=== PATIENT | female | born 1970 | race Caucasian/White ===

== ENCOUNTER 2016-08-11 21:18 | Observation (INO) | payer OTHER ==
[2016-08-11] MEDS ORDERED: NORMAL SALINE 1000 ML 1,000 ML IV PRN (22:21)
[2016-08-11] MEDS ORDERED: METOCLOPRAMIDE HCL INJ/PF 10 MG/2 ML SDV IV ONE (22:21)
--- NOTE | 2016-08-11 22:29 | ER Document Report ---
ED GI/ - General Chief Complaint: Dizziness Stated Complaint: DIZZY/NAUSEA/VOMITING Time Seen by Provider: 08/11/16 22:05 Mode of Arrival: Ambulatory Information source: Patient TRAVEL OUTSIDE OF THE [place] IN LAST 30 DAYS: No - HPI Patient complains to provider of: Other - nausea Onset: This evening Timing/Duration: Sudden Quality of pain: No pain Associated symptoms: Nausea Exacerbated by: Denies Relieved by: Denies Similar symptoms previously: No Recently seen / treated by doctor: No Notes: 08/12/16 03:13 It is a 46-year-old female who presents to the emergency room complaining of nausea and vomiting that started this evening, she states she has not had a bowel movement since last , therefore she drinks some prune juice this evening and then took benzonite which is an herbal supplement, stating she took a little over a teaspoon of this medication, shortly thereafter she developed vomiting and nausea, denies any abdominal pain, no fever, no history of similar symptoms, no dysuria or hematuria, reports that she does not take the benzonite on a regular basis, this was the first time she has taken it, her last bowel movement was normal and without blood, vomiting also without blood, she denies any history of GI bleeding, no sick contacts, she reports drinking approximately 4 bottles of water on a daily basis, denies alcohol intake, she quit smoking in March and started vaping patient does not currently take any medication, has a history of a in 2006, no other abdominal surgery - Related Data Allergies/Adverse Reactions: bacitracin [From Neosporin ([id number])] Allergy (Verified 08/12/16 02:10) neomycin [From Neosporin ([id number])] Allergy (Verified 08/12/16 02:10) polymyxin B [From Neosporin ([id number])] Allergy (Verified 08/12/16 02:10) Past Medical History - General Information source: Patient - Social History Smoking Status: Current Every Day Smoker - Vape Frequency of alcohol use: Occasional Family History: Reviewed & Not Pertinent Review of Systems - Review of Systems Constitutional: No symptoms reported EENT: No symptoms reported Cardiovascular: No symptoms reported Respiratory: No symptoms reported Gastrointestinal: See HPI Genitourinary: No symptoms reported Female Genitourinary: No symptoms reported Musculoskeletal: No symptoms reported Skin: No symptoms reported Hematologic/Lymphatic: No symptoms reported Neurological/Psychological: No symptoms reported -: Yes All other systems reviewed and negative Physical Exam - Vital signs Vitals: Resp Pulse Ox 16 100 08/11/16 21:55 08/11/16 21:55 Interpretation: Normal - General General appearance: Appears well, Alert - HEENT Head: Normocephalic, Atraumatic Eyes: Normal Pupils: PERRL - Respiratory Respiratory status: No respiratory distress Chest status: Nontender Breath sounds: Normal Chest palpation: Normal - Cardiovascular Rhythm: Regular Heart sounds: Normal auscultation Murmur: No - Abdominal Inspection: Normal Distension: No distension Bowel sounds: Normal Tenderness: Nontender Organomegaly: No organomegaly - Rectal Tenderness: No Stool: No: Bloody Hemorrhoids: None - Back Back: Normal, Nontender - Extremities General upper extremity: Normal inspection, Nontender, Normal color, Normal ROM , Normal temperature General lower extremity: Normal inspection, Nontender, Normal color, Normal ROM , Normal temperature, Normal weight bearing. No: Alexey's sign - Neurological Neuro grossly intact: Yes Cognition: Normal Orientation: AAOx4 Alisha Coma Scale Eye Opening: Spontaneous [place] Coma Scale Verbal: Oriented [place] Coma Scale Motor: Obeys Commands Alisha Coma Scale Total: 15 Speech: Normal Motor strength normal: LUE, RUE, LLE, RLE Sensory: Normal - Psychological Associated symptoms: Normal affect, Normal mood - Skin Skin Temperature: Warm Skin Moisture: Dry Skin Color: Normal Course - Re-evaluation Re-evalutation: 08/11/16 23:48 call to poison control, spoke with Vivienne, discussed patient's use of benzonite, which if used chronically can cause hypokalemia, or intestinal obstruction likely not the source of patient's hyponatremia Findings were discussed with patient at bedside as well as imaging, observation admission was recommended and patient is in agreement with this Was discussed with hospitalist who agrees to admit for further evaluation and treatment - Vital Signs Vital signs: Temp Pulse Resp BP Pulse Ox 98.4 F 18 112/77 96 08/11/16 22:19 08/12/16 01:30 08/12/16 01:30 08/12/16 01:30 - Laboratory Result Diagrams: 08/11/16 23:06 08/11/16 23:06 Laboratory results interpreted by me: 08/11/16 08/11/16 08/11/16 23:06 23:06 23:06 WBC 13.0 H Hgb 8.9 L Hct 28.6 L MCV 68 L MCH 21.2 L MCHC 31.3 L RDW 17.3 H Seg Neutrophils % 80.7 H Lymphocytes % 8.8 L Absolute Neutrophils 10.5 H Sodium 118.0 L* Potassium 3.5 L Chloride 84 L BUN 4 L Calcium 8.0 L AST 43 H Total Protein 6.0 L Urine Glucose (UA) 50 H Urine Ketones 20 H - Diagnostic Test Radiology reviewed: Image reviewed, Reports reviewed - Transfer of Care Care transferred to following provider: Dr. Varela Discharge - Discharge Clinical Impression: Hyponatremia Nausea and vomiting Qualifiers: Vomiting type: unspecified Vomiting Intractability: non-intractable Qualified Code(s): R11.2 - Nausea with vomiting, unspecified Pneumonia Qualifiers: Pneumonia type: due to unspecified organism Laterality: right Lung location: middle lobe of lung Qualified Code(s): J18.1 - Lobar pneumonia, unspecified organism Admitting Provider: Hospitalist Unit Admitted: Telemetry Referrals: DAX CARABALLO MD [Primary Care Provider] - Follow up as needed
[2016-08-11 23:21] LABS: ABSOLUTE BASOPHILS # (AUTO) 0.1 10^3/uL (0.0-0.2); ABSOLUTE EOSINOPHILS # (AUTO) 0.1 10^3/uL (0.0-0.6); ABSOLUTE LYMPHOCYTES (AUTO) 1.1 10^3/uL (0.5-4.7); ABSOLUTE MONOCYTES (AUTO) 1.2 10^3/uL (0.1-1.4); ABSOLUTE NEUT (AUTO) 10.5 10^3/uL (1.7-8.2); BASOPHILS % (AUTO) 0.4 % (0-2); EOSINOPHILS % (AUTO) 0.8 % (0-6); HEMATOCRIT 28.6 % (36.0-47.0); HEMOGLOBIN 8.9 g/dL (12.0-15.5); HGB HCT DIFFERENCE -1.9; LYMPHOCYTES % (AUTO) 8.8 % (13-45); MEAN CORPUSCULAR HEMOGLOBIN 21.2 pg (27.0-33.4); MEAN CORPUSCULAR HGB CONC 31.3 g/dL (32.0-36.0); MEAN CORPUSCULAR VOLUME 68 fl (80-97); MONOCYTES % (AUTO) 9.3 % (3-13); RED BLOOD COUNT 4.23 10^6/uL (3.72-5.28); RED CELL DISTRIBUTION WIDTH 17.3 % (11.5-14.0); SEGMENTED NEUTROPHILS % (AUTO) 80.7 % (42-78)
[2016-08-11 23:29] LABS: ALANINE AMINOTRANSFERASE 42 U/L (9-52); ALBUMIN 3.6 g/dL (3.5-5.0); ALKALINE PHOSPHATASE 49 U/L (38-126); ANION GAP 11 (5-19); ASPARTATE AMINO TRANSFERASE 43 U/L (14-36); BILIRUBIN,DIRECT 0.2 mg/dL (0.0-0.4); BILIRUBIN,TOTAL 0.6 mg/dL (0.2-1.3); BLOOD UREA NITROGEN 4 mg/dL (7-20); CARBON DIOXIDE 23 mmol/L (22-30); CHLORIDE 84 mmol/L (98-107); CREATININE RESULT 0.62 mg/dL (0.52-1.25); GLUCOSE 79 mg/dL (75-110); POTASSIUM 3.5 mmol/L (3.6-5.0)
[2016-08-11 23:35] LABS: ALCOHOL < 10 mg/dL (NONE DETECTED)
[2016-08-12 00:56] LABS: APPEARANCE,URINE CLEAR; BILIRUBIN,URINE NEGATIVE (NEGATIVE); GLUCOSE, URINE 50 mg/dL (NEGATIVE); KETONES,URINE 20 mg/dL (NEGATIVE); LEUKOCYTE ESTERASE,URINE NEGATIVE (NEGATIVE); NITRITE,URINE NEGATIVE (NEGATIVE); PROTEIN,URINE NEGATIVE (NEGATIVE); URINE SPECIFIC GRAVITY 1.003; UROBILINOGEN,URINE NEGATIVE mg/dL (<2.0)
[2016-08-12 02:40] LABS: URINE BARBITURATES SCREEN NEGATIVE; URINE METHADONE SCREEN NEGATIVE; URINE OPIATES LOW NEGATIVE; URINE PHENCYCLIDINE SCREEN NEGATIVE
--- NOTE | 2016-08-12 02:53 | RADIOLOGY REPORT (SQ) ---
EXAM DESCRIPTION: CT ABD/PELVIS WITH IV ORAL COMPLETED DATE/TIME: 08/12/2016 2:32 am REASON FOR STUDY: abdominal pain COMPARISON: None. TECHNIQUE: CT scan of the abdomen and pelvis performed using helical scanning technique with dynamic intravenous contrast injection. No oral contrast. Images reviewed with lung, soft tissue, and bone windows. Reconstructed coronal and sagittal MPR images reviewed. Delayed images for evaluation of the urinary system also acquired. All images stored on PACS. All CT scanners at this facility use dose modulation, iterative reconstruction, and/or weight based d osing when appropriate to reduce radiation dose to as low as reasonably achievable (ALARA). [facility]: Dose Right [facility]: CareDose [facility]: Dose Right [facility]: Teradose 4D [facility]: Mindflash CONTRAST TYPE AND DOSE: 100mL Isovue 370- low osmolar. RENAL FUNCTION: None required. The patient is less than 50 years old. RADIATION DOSE: 13.22mGy. LIMITATIONS: None. FINDINGS: LOWER CHEST: Small airspace patchiness of the right middle lobe. LIVER: Normal size. No masses or dilated ducts. SPLEEN: Normal size. No focal lesions. PANCREAS: No masses. No significant calcifications. No adjacent inflammation or peripancreatic fluid collections. Pancreatic duct not dilated. GALLBLADDER: No identified stones by CT criteria. No inflammatory changes to suggest cholecystitis. ADRENAL GLANDS: No significant masses or asymmetry. RIGHT KIDNEY AND URETER: No solid masses. No significant calcifications. No hydronephrosis or hyd roureter. Extrarenal pelvis. LEFT KIDNEY AND URETER: No solid masses. No significant calcifications. No hydronephrosis or hydr oureter. AORTA AND VESSELS: No aneurysm. No dissection. Renal arteries, SMA, celiac without stenosis. RETROPERITONEUM: No retroperitoneal adenopathy, hemorrhage or masses. BOWEL AND PERITONEAL CAVITY: No masses or inflammatory changes. No free fluid or peritoneal masses. APPENDIX: Normal. PELVIS: Small free fluid in the right paracentral pelvis. ABDOMINAL WALL: No masses. No hernias. BONES: No significant or acute findings. OTHER: No other significant finding. IMPRESSION: 1. Small free pelvic fluid. 2. Possible small right middle lobar pneumonia. TECHNICAL DOCUMENTATION: JOB ID: [id number] Quality ID # [id number]: Final reports with documentation of one or more dose reduction techniques (e.g., Au tomated exposure control, adjustment of the mA and/or kV according to patient size, use of iterative reconstruction technique) 2010 [employer]- All Rights Reserved
[2016-08-12] MEDS ORDERED: CEFTRIAXONE INJ 1000 MG VIAL IV ONE (03:01)
[2016-08-12] MEDS ORDERED: NICOTINE 7 MG/24 HR PATCH.TD24 TD PRN (04:18)
[2016-08-12 04:26] LABS: ALANINE AMINOTRANSFERASE 40 U/L (9-52); ALBUMIN 3.4 g/dL (3.5-5.0); ALKALINE PHOSPHATASE 49 U/L (38-126); ANION GAP 10 (5-19); ASPARTATE AMINO TRANSFERASE 44 U/L (14-36); BILIRUBIN,DIRECT 0.2 mg/dL (0.0-0.4); BILIRUBIN,TOTAL 0.6 mg/dL (0.2-1.3); BLOOD UREA NITROGEN 3 mg/dL (7-20); CALCIUM 8.3 mg/dL (8.4-10.2); CARBON DIOXIDE 24 mmol/L (22-30); CHLORIDE 94 mmol/L (98-107); CREATININE RESULT 0.62 mg/dL (0.52-1.25); GLUCOSE 80 mg/dL (75-110); MAGNESIUM 1.6 mg/dL (1.6-2.3); POTASSIUM 3.6 mmol/L (3.6-5.0); SODIUM 127.6 mmol/L (137-145); TOTAL PROTEIN 5.8 g/dL (6.3-8.2)
[2016-08-12] MEDS ORDERED: ACETAMINOPHEN 325 MG TABLET PO PRN (04:29)
--- NOTE | 2016-08-12 05:02 | PDOC H&P ---
History of Present Illness Admission Date/PCP: 08/12/16 03:28 DAX CARABALLO MD Patient complains of: nause/vomiting/diarrhea History of Present Illness: NEGRITA IBANEZ is a 46 year old female with a history of anxiety, admittedly drinking 2 beers a day, and approximately 3 32-ounce containers of water per day, in the form of water itself, along with tea and coffee, who presents to the emergency room for evaluation of above complaints. Patient has been discussed with emergency room physician who evaluated the patient. This morning, approximately 10 AM, she took prune juice and approximately a tablespoon full of benzonite, an [id number]-hxkyerv herbal medication, for a 3 day history of constipation. Starting approximately noon, she developed multiple episodes of nonbloody non- coffee-ground emesis, with subsequent development of diarrhea later that afternoon. No blood from below, either. According to a female EMS automotive lube technician in the room, with patient's approval, patient was noted to have approximately a "3 gallon trash can" full of emesis at her home. Associated cramping abdominal pain, but no pain at present. no chest pain. No fever or chills. No cough. Has taken this benzonite only once before in the distant past, approximately half the above dose. No such problems at that time. Emergency room physician did speak with [place] poison control concerning this medication. Was told if used chronically, can cause hypokalemia or intestinal obstruction. No known history of hyponatremia. Initially denied illicit drug use, but did admit to "trying" cocaine 2 days ago. Currently resting quietly, complaining primarily of being tired. Laboratory results are listed in [facility] and are reviewed. No prior chemistry results available for review. X-ray summary results are listed below, with full report(s) reviewed. EKG pending. Social history/personal habits: . Has children. 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 Personal habits as noted above. Stopped smoking cigarettes in March, but now vapes. Allergies/adverse reactions are listed in [facility] and are reviewed. Home medications consist only of a multivitamin. REVIEW OF SYSTEMS: Constitutional: No fever or chills. Eyes: Wears glasses. ENT: No swallowing problems or complaints. Denies hearing loss. Pulmonary: No current complaints. Cardiovascular: No current complaints, including chest pain. Gastrointestinal: See history and present illness. Skin: No current complaints, including rashes. Hematologic: Denies easy bruising. Neurologic: No current complaints, including numbness or tingling. Musculoskeletal: No current or chronic joint complaints, such as arthritis. Psychiatric: History of anxiety; no current complaints of same, or depression. Endocrine: No current complaints, including polyuria. Genitourinary: No current complaints, including dysuria. PHYSICAL EXAMINATION: 5 feet 3 inches tall. 65.8 kg. BMI 25.7 kg/m. Pulse 78 and regular. Blood pressure 115/77. Respirations are 15 and unlabored. 100% saturation on room air. Temperature 98.4. Slightly overweight otherwise well-nourished well-developed female appearing approximately her stated age. Pleasant awake alert and cooperative. No obvious distress other than perhaps mildly anxious. Also appears perhaps slightly fatigued. Female EMS automotive lube technician is present for a brief time when I initially walk in the room. Female emergency room nurse Zelda is present. Skin is warm and dry. No grossly obvious evidence of rash in areas of skin examined. No subcutaneous nodules palpated. ENT: Hearing grossly normal to normal conversation. Tongue midline on protrusion pink and slightly tacky. Eyes: No scleral icterus. Pupils equal and reactive to light at 4 mm. [place] conjunctivae. Neck is supple and nontender to gentle active range of motion and palpation. Midline trachea. No palpable thyroid nodule mass enlargement or tenderness. Lymphatic: No palpable cervical or clavicular nodes. Neck and lymphatic exams limited by patient body habitus. Psychiatric: Reasonable insight into acute and chronic medical issues. Oriented to time location and why here. Lungs: Auscultation reveals clear and equal breath sounds bilaterally. No use of accessory respiratory muscles. Cardiovascular: Heart regular rate and rhythm, without gallop murmur or rub. No carotid or abdominal aortic bruits. No ankle or pedal edema. Palpable dorsalis pedis pulses. Abdomen:soft slightly distended nontender with positive bowel sounds. Unable to adequately evaluate abdomen for masses or organomegaly due to distention. Extremities: Hands and feet are warm and dry. No calf tenderness to compression. No grossly obvious visual evidence of upper extremity or calf swelling. Gentle manipulation of upper and lower extremities fails to reveal any obvious evidence of injury or instability to involved major joints. Neurologic: Light touch intact at feet. Motor function of major muscle groups upper and lower extremities 5 over 5 and symmetric. Patellar reflexes absent. Absent Babinski. No facial droop. No nystagmus. No rigidity. Past Medical History Cardiac Medical History: Denies: Congestive Heart Failure, DVT, Myocardial Infarction, Hyperlipidema, Hypertension, Pulmonary Embolism Pulmonary Medical History: Denies: Asthma, Chronic Obstructive Pulmonary Disease (COPD), Sleep Apnea EENT Medical History: Reports: Eyes - Glasses Denies: Ears, Throat Neurological Medical History: Denies: Hemorrhagic CVA, Ischemic CVA, Seizures Endocrine Medical History: Denies: Diabetes Mellitus Type 1, Diabetes Mellitus Type 2, Hyperthyroidism, Hypothyroidism Renal/ Medical History: Reports: None Malignancy Medical History: Reports: Skin Cancer - Previous excision of basal cell carcinoma. GI Medical History: Reports: Gastroesophageal Reflux Disease - Possible considering patient's description of symptoms. Denies: Cirrhosis, Hepatitis, Peptic Ulcer Disease Musculoskeltal Medical History: Denies: Arthritis Skin Medical History: Reports: Other - Previous excision of basal cell carcinoma. Psychiatric Medical History: Reports: General Anxiety Disorder - History of same ; denies current complaints., Substance Abuse, Tobacco Dependency Denies: Alcohol Dependency - Averages 2 beers a day., Depression Hematology: Reports: Anemia - Her review of prior labs. Infectious Medical History: Denies: Clostridium Difficile, Hepatitis B, Hepatitis C, Methicillin- Resistant Staph Aureus Past Surgical History Past Surgical History: Reports: Section, Other - Excision of basal cell carcinoma skin Social History Information Source: Patient, Emergency Med Personnel, [facility] Records Smoking Status: Current Every Day Smoker - Vape Frequency of Alcohol Use: Social Drugs: Cocaine - Advance Directive Resuscitation Status: Full Code Surrogate healthcare decision maker:: Mother Family History Family History: Reviewed & Not Pertinent Parental Family History Reviewed: Yes - Mother with Crohn's disease. Father of cancer. Children Family History Reviewed: Yes - Healthy Sibling(s) Family History Reviewed.: Yes - Healthy Medication/Allergy Home Medications: No Home Medications 08/12/16 Allergies/Adverse Reactions: bacitracin [From Neosporin ([id number])] Allergy (Verified 08/12/16 02:10) neomycin [From Neosporin ([id number])] Allergy (Verified 08/12/16 02:10) polymyxin B [From Neosporin ([id number])] Allergy (Verified 08/12/16 02:10) Physical Exam Vital Signs: Temp Pulse Resp BP Pulse Ox 98.4 F 15 129/70 H 100 08/11/16 22:19 08/12/16 04:03 08/12/16 04:03 08/12/16 04:03 Results Laboratory Results: 08/12/16 03:53 08/12/16 03:53 Sodium 127.6 L Potassium 3.6 Chloride 94 L Carbon Dioxide 24 Anion Gap 10 BUN 3 L Creatinine 0.62 Est GFR ( Amer) > 60 Est GFR (Non-Af Amer) > 60 Glucose 80 Calcium 8.3 L Magnesium 1.6 Total Bilirubin 0.6 AST 44 H ALT 40 Alkaline Phosphatase 49 Total Protein 5.8 L Albumin 3.4 L Impressions: Abdomen/Pelvis CT 08/11/16 23:52 IMPRESSION: 1. Small free pelvic fluid. 2. Possible small right middle lobar pneumonia. Assessment & Plan - Diagnosis (1) Abnormal chest x-ray Is this a current diagnosis for this admission?: YesPlan: Has received a dose of Rocephin by emergency room physician. Due to lack of symptoms, we will forego further antibiotics, but will institute incentive spirometry twice daily. Follow-up CBC with differential. (2) Cocaine use Is this a current diagnosis for this admission?: Yes (3) Elevated LFTs Is this a current diagnosis for this admission?: YesPlan: Repeat chemistry. (4) Hypokalemia Is this a current diagnosis for this admission?: YesPlan: Repeat chemistry. (5) Hyponatremia Is this a current diagnosis for this admission?: YesPlan: Suspect an element of chronic hyponatremia, given patient's alcohol and water use; no prior chemistry values for comparison. Suspect also impacted by her vomiting, and perhaps even diarrhea. Follow-up chemistry. Appropriate IV fluids if needed. I have strongly encouraged patient not to get out of bed without notifying staff , to avoid a fall with injury. Knee high SCDs for DVT prophylaxis, along with subcutaneous Lovenox. Impression and plans were discussed with patient who concurs. Time spent in evaluation and management of patient: 61 minutes. (6) Nausea vomiting and diarrhea Is this a current diagnosis for this admission?: YesPlan: Suspect due in part to the herbal medication she took. No current GI tract complaints. (7) Anemia Qualifiers: Anemia type: unspecified type Qualified Code(s): D64.9 - Anemia, unspecified Is this a current diagnosis for this admission?: YesPlan: Basic anemia screening labs. Follow-up CBC with differential. PT/INR and PTT. Likely can be further evaluated as outpatient.
[2016-08-12 07:18] LABS: ABSOLUTE BASOPHILS # (AUTO) 0.1 10^3/uL (0.0-0.2); ABSOLUTE EOSINOPHILS # (AUTO) 0.2 10^3/uL (0.0-0.6); ABSOLUTE MONOCYTES (AUTO) 1.3 10^3/uL (0.1-1.4); BASOPHILS % (AUTO) 0.6 % (0-2); EOSINOPHILS % (AUTO) 1.9 % (0-6); HEMATOCRIT 28.5 % (36.0-47.0); HEMOGLOBIN 9.3 g/dL (12.0-15.5); HGB HCT DIFFERENCE -0.6; LYMPHOCYTES % (AUTO) 9.5 % (13-45); MEAN CORPUSCULAR HEMOGLOBIN 21.6 pg (27.0-33.4); MEAN CORPUSCULAR HGB CONC 32.6 g/dL (32.0-36.0); MEAN CORPUSCULAR VOLUME 66 fl (80-97); RED BLOOD COUNT 4.29 10^6/uL (3.72-5.28); RED CELL DISTRIBUTION WIDTH 17.1 % (11.5-14.0); WHITE BLOOD COUNT 10.5 10^3/uL (4.0-10.5)
[2016-08-12 07:32] LABS: PROTHROMBIN TIME 13.7 SEC (11.4-15.4)
[2016-08-12 07:33] LABS: PARTIAL THROMBOPLASTIN TIME 29.7 SEC (23.5-35.8)
[2016-08-12 07:36] LABS: ANION GAP 8 (5-19); BLOOD UREA NITROGEN 2 mg/dL (7-20); CALCIUM 8.7 mg/dL (8.4-10.2); CARBON DIOXIDE 26 mmol/L (22-30); CHLORIDE 99 mmol/L (98-107); CREATININE RESULT 0.65 mg/dL (0.52-1.25); GLUCOSE 85 mg/dL (75-110); POTASSIUM 3.6 mmol/L (3.6-5.0); SODIUM 132.6 mmol/L (137-145)
[2016-08-12] MEDS ORDERED: ENOXAPARIN SODIUM INJ 40 MG/0.4 ML DISP.SYRIN SUBCUT SCH (08:00)
[2016-08-12 08:11] LABS: FERRITIN 9.16 ng/mL (6.2-137.0)
--- NOTE | 2016-08-12 11:34 | PDOC DISCHARGE SUMMARY ---
General - Admit/Disc Date/PCP Admission Date/Primary Care Provider: 08/12/16 04:20 DAX CARABALLO MD Discharge Date: 08/12/16 - Discharge Diagnosis (1) Hyponatremia Is this a current diagnosis for this admission?: YesSummary: Patient was found to have hyponatremia. She had low urine osmolality and low serum osmolality. She was advised to discontinue alcohol intake and to limit total fluid intake to 1.5-2 L daily. Sodium was slightly low but stable at time of discharge. She will need to follow-up with her primary care provider. (2) Alcohol abuse Is this a current diagnosis for this admission?: Yes (3) Cocaine use Is this a current diagnosis for this admission?: Yes (4) Hypokalemia Is this a current diagnosis for this admission?: YesSummary: Patient had mild hypokalemia on admission. This has now been corrected. (5) Nausea and vomiting Is this a current diagnosis for this admission?: Yes (6) Anemia Is this a current diagnosis for this admission?: YesSummary: Patient was found to be anemic on this admission. She was Hemoccult negative. Hemoglobin was low but stable. She was advised to discontinue alcohol intake. This will need further outpatient follow-up by her primary care provider. - Additional Information Resuscitation Status: Full Code Discharge Diet: Regular Discharge Activity: Activity As Tolerated Home Medications: No Home Medications 08/12/16 History of Present Illness Patient complains of: Nausea and vomiting History of Present Illness: NEGRITA IBANEZ is a 46 year old female with a history of anxiety, admittedly drinking 2 beers a day, and approximately 3 32-ounce containers of water per day, in the form of water itself, along with tea and coffee, who presents to the emergency room for evaluation of above complaints. Hospital Course Hospital Course: See above Physical Exam Vital Signs: Temp Pulse Resp BP Pulse Ox 98.1 F 73 16 102/59 L 98 08/12/16 07:44 08/12/16 07:44 08/12/16 07:44 08/12/16 07:44 08/12/16 07:44 GENERAL: No acute distress HEENT: Conjunctiva clear, nonicteric, moist mucous membranes, no JVD, midline trachea RESPIRATORY: Clear to auscultation bilaterally, no wheezes, no rhonchi CARDIAC: Regular rate and rhythm, no murmurs/gallops/rubs ABDOMEN: Soft, nondistended, nontender, positive bowel sounds, no rebound, no guarding EXTREMETIES: No edema, cyanosis, clubbing NEUROLOGIC: Alert, oriented to person/place/time, CN's grossly intact, no focal deficits SKIN: No rash, wounds PSYCH: Normal mood, normal affect Results Laboratory Results: 08/12/16 06:37 08/12/16 06:37 08/12/16 08/12/16 06:37 06:37 WBC 10.5 RBC 4.29 Hgb 9.3 L Hct 28.5 L MCV 66 L MCH 21.6 L MCHC 32.6 RDW 17.1 H Plt Count 396 Seg Neutrophils % 76.0 Lymphocytes % 9.5 L Monocytes % 12.0 Eosinophils % 1.9 Basophils % 0.6 Absolute Neutrophils 8.0 Absolute Lymphocytes 1.0 Absolute Monocytes 1.3 Absolute Eosinophils 0.2 Absolute Basophils 0.1 Retic Count (auto) 2.17 Absolute Retic 0.093 Sodium 132.6 L Potassium 3.6 Chloride 99 Carbon Dioxide 26 Anion Gap 8 BUN 2 L Creatinine 0.65 Est GFR ( Amer) > 60 Est GFR (Non-Af Amer) > 60 Glucose 85 Calcium 8.7 Iron < 10.1 L TIBC 291 % Saturation UNABLE TO CALCULATE Ferritin 9.16 Vitamin B12 691.0 Folate 11.90 Labs- Last Values WBC 10.5 10^3/uL (4.0-10.5) 08/12/16 06:37 RBC 4.29 10^6/uL (3.72-5.28) 08/12/16 06:37 Hgb 9.3 g/dL (12.0-15.5) L 08/12/16 06:37 Hct 28.5 % (36.0-47.0) L 08/12/16 06:37 MCV 66 fl (80-97) L 08/12/16 06:37 MCH 21.6 pg (27.0-33.4) L 08/12/16 06:37 MCHC 32.6 g/dL (32.0-36.0) 08/12/16 06:37 RDW 17.1 % (11.5-14.0) H 08/12/16 06:37 Plt Count 396 10^3/uL (150-450) 08/12/16 06:37 Seg Neutrophils % 76.0 % (42-78) 08/12/16 06:37 Lymphocytes % 9.5 % (13-45) L 08/12/16 06:37 Monocytes % 12.0 % (3-13) 08/12/16 06:37 Eosinophils % 1.9 % (0-6) 08/12/16 06:37 Basophils % 0.6 % (0-2) 08/12/16 06:37 Absolute Neutrophils 8.0 10^3/uL (1.7-8.2) 08/12/16 06:37 Absolute Lymphocytes 1.0 10^3/uL (0.5-4.7) 08/12/16 06:37 Absolute Monocytes 1.3 10^3/uL (0.1-1.4) 08/12/16 06:37 Absolute Eosinophils 0.2 10^3/uL (0.0-0.6) 08/12/16 06:37 Absolute Basophils 0.1 10^3/uL (0.0-0.2) 08/12/16 06:37 Retic Count (auto) 2.17 % (0.66-2.85) 08/12/16 06:37 Absolute Retic 0.093 10^6/uL (0.028-0.122) 08/12/16 06:37 PT 13.7 SEC (11.4-15.4) 08/12/16 06:37 INR 0.98 08/12/16 06:37 APTT 29.7 SEC (23.5-35.8) 08/12/16 06:37 Sodium 132.6 mmol/L (137-145) L 08/12/16 06:37 Potassium 3.6 mmol/L (3.6-5.0) 08/12/16 06:37 Chloride 99 mmol/L (98-107) 08/12/16 06:37 Carbon Dioxide 26 mmol/L (22-30) 08/12/16 06:37 Anion Gap 8 (5-19) 08/12/16 06:37 BUN 2 mg/dL (7-20) L 08/12/16 06:37 Creatinine 0.65 mg/dL (0.52-1.25) 08/12/16 06:37 Est GFR ( Amer) > 60 (>60) 08/12/16 06:37 Est GFR (Non-Af Amer) > 60 (>60) 08/12/16 06:37 Glucose 85 mg/dL (75-110) 08/12/16 06:37 Serum Osmolality 265 mOsm/kg (275-301) L 08/12/16 03:53 Calcium 8.7 mg/dL (8.4-10.2) 08/12/16 06:37 Magnesium 1.6 mg/dL (1.6-2.3) 08/12/16 03:53 Iron < 10.1 ug/dL (37-170) L 08/12/16 06:37 TIBC 291 ug/dL (250-450) 08/12/16 06:37 % Saturation UNABLE TO CALCULATE % (15% - 50%) 08/12/16 06:37 Ferritin 9.16 ng/mL (6.2-137.0) 08/12/16 06:37 Total Bilirubin 0.6 mg/dL (0.2-1.3) 08/12/16 03:53 Direct Bilirubin 0.2 mg/dL (0.0-0.4) 08/12/16 03:53 Indirect Bilirubin Not Reportable 08/12/16 03:53 Neonat Total Bilirubin Not Reportable 08/12/16 03:53 AST 44 U/L (14-36) H 08/12/16 03:53 ALT 40 U/L (9-52) 08/12/16 03:53 Alkaline Phosphatase 49 U/L (38-126) 08/12/16 03:53 Total Protein 5.8 g/dL (6.3-8.2) L 08/12/16 03:53 Albumin 3.4 g/dL (3.5-5.0) L 08/12/16 03:53 Lipase 69.0 U/L (23-300) 08/11/16 23:06 Vitamin B12 691.0 pg/mL (239-931) 08/12/16 06:37 Folate 11.90 ng/mL (>2.76) 08/12/16 06:37 TSH 1.82 uIU/mL (0.47-4.68) 08/12/16 03:53 Serum HCG, Qual NEGATIVE (NEGATIVE) 08/11/16 23:06 Urine Color COLORLESS 08/11/16 23:06 Urine Appearance CLEAR 08/11/16 23:06 Urine pH 6.0 (5.0-9.0) 08/11/16 23:06 Ur Specific Lawler 1.003 08/11/16 23:06 Urine Protein NEGATIVE mg/dL (NEGATIVE) 08/11/16 23:06 Urine Glucose (UA) 50 mg/dL (NEGATIVE) H 08/11/16 23:06 Urine Ketones 20 mg/dL (NEGATIVE) H 08/11/16 23:06 Urine Blood NEGATIVE (NEGATIVE) 08/11/16 23:06 Urine Nitrite NEGATIVE (NEGATIVE) 08/11/16 23:06 Urine Bilirubin NEGATIVE (NEGATIVE) 08/11/16 23:06 Urine Urobilinogen NEGATIVE mg/dL (<2.0) 08/11/16 23:06 Ur Leukocyte Esterase NEGATIVE (NEGATIVE) 08/11/16 23:06 Urine WBC (Auto) 0 /HPF 08/11/16 23:06 Urine RBC (Auto) 0 /HPF 08/11/16 23:06 Urine Bacteria (Auto) TRACE /HPF 08/11/16 23:06 Squamous Epi Cells Auto 1 /HPF 08/11/16 23:06 Urine Osmolality 113 mOsm/kg (300-900) L 08/11/16 23:06 Urine Sodium 25 mmol/L (30-90) L 08/11/16 23:06 Urine Ascorbic Acid NEGATIVE (NEGATIVE) 08/11/16 23:06 Stool Occult Blood NEGATIVE (NEGATIVE) 08/12/16 02:50 Urine Opiates Screen NEGATIVE 08/11/16 23:06 Urine Methadone Screen NEGATIVE 08/11/16 23:06 Ur Barbiturates Screen NEGATIVE 08/11/16 23:06 Ur Phencyclidine Scrn NEGATIVE 08/11/16 23:06 Ur Amphetamines Screen NEGATIVE 08/11/16 23:06 U Benzodiazepines Scrn NEGATIVE 08/11/16 23:06 Urine Cocaine Screen UNCONFIRMED POSITIVE 08/11/16 23:06 U Marijuana (THC) Screen NEGATIVE 08/11/16 23:06 Serum Alcohol < 10 mg/dL (NONE DETECTED) 08/11/16 23:06 Impressions: Abdomen/Pelvis CT 08/11/16 23:52 IMPRESSION: 1. Small free pelvic fluid. 2. Possible small right middle lobar pneumonia. Qualifiers PATEINT BEING DISCHARGED WITH ANY OF THE FOLLOWING DIAGNOSIS?: No Plan Time Spent: Less than 30 Minutes
[2016-08-12 12:15] VITALS: BP 98/60
--- NOTE | 2016-08-13 09:57 | EKG REPORT ---
SEVERITY:- BORDERLINE ECG - SINUS RHYTHM BORDERLINE T ABNORMALITIES, ANT-LAT LEADS : Confirmed by: Pardeep Howell 13-Aug-2016 09:56:54
== END 2016-08-12 12:39 | disposition home or self-care (01) ==
LOC: ER 21:18 → UNDOADMOB 08-12 03:28 → EH 08-12 03:28 → 5 08-12 04:45
PROVIDERS: ADMIT Family Medicine; ATTEND Family Medicine
DX: E87.1 Hypo-osmolality and hyponatremia (principal); F10.10 Alcohol abuse, uncomplicated; F14.90 Cocaine use, unspecified, uncomplicated; E87.6 Hypokalemia; R11.2 Nausea with vomiting, unspecified; D64.9 Anemia, unspecified; R19.7 Diarrhea, unspecified; F17.290 Nicotine dependence, other tobacco product, uncomplicated; R91.8 Other nonspecific abnormal finding of lung field; R79.89 Other specified abnormal findings of blood chemistry; Z83.79 Family history of other diseases of the digestive system; Z80.9 Family history of malignant neoplasm, unspecified; Z85.828 Personal history of other malignant neoplasm of skin; Z87.891 Personal history of nicotine dependence
CPT/HCPCS: 93005; 99285; 96361; 96375; 96365; 36415 ×2; 87086; 80307 ×2; 82607; 82728; 82746; 83540; 83550; 83655; 83690; 83735; 83930; 84443; 84703; 83935; 84300; 85025 ×2; 85610; 85730; 82272; 85045; 80048; 80053 ×2; 81001; 84466; 74177; 94799; 93010; J2765; J1650; J0696; J7030; G0378

== ENCOUNTER 2019-12-05 08:01 | Day surgery (SDC) | payer OTHER ==
[~2019-12-05 08:01] MED LIST: PROPOFOL INJ 200 MG/20 ML VIAL IV ONE
--- NOTE | 2019-12-05 10:32 | Operative Report ---
Operative Report DATE OF SURGERY: 12/05/19 Operative Report: The risk, benefits and alternatives of the procedure including the risk of bleeding, perforation requiring surgery have been explained to the patient in detail and informed consent has been obtained. Patient is placed in left lateral decubital position. Propofol medication is administered. A rectal examination is done which did not reveal any masses, tears or fissures. An Olympus videoscope was introduced into the patient's rectum. Scope was then car efully advanced all the way to the cecum. The cecum was identified by the usual anatomical landmarks including the ileocecal valve as well as the appendiceal office. Photodocumentation is obtained. Scope was then sequentially pulled back via the various segments of the colon including the ascending colon, hepatic flexure, transverse colon, splenic flexure, descending colon and finally into the rectosigmoid portions of the colon. Retroflexion maneuvers performed. The risks benefits and alternatives of the procedure explained to the patient in detail and informed consent is obtained.A GIF Olympus video scope was inserted into the patient's mouth and hypopharynx, the esophagus is identified intubated and insufflated, the scope was then advanced through the esophagus stomach and duodenum .retroflexion maneuver is done, the esophagus stomach and first and second portions of the duodenum examined PREOPERATIVE DIAGNOSIS: Abdominal pain. Change of bowel habits POSTOPERATIVE DIAGNOSIS: Gastritis status post biopsy. Colonic ulcers throughout the colon starting from the ileocecal valve all the way down to the rectum status post biopsy rule out Crohn's disease. Possible superinfection with C. difficile stool sample was collected for confirmation OPERATION: Colonoscopy with biopsy. EGD with biopsy SURGEON: MICHELLE GONGORA ANESTHESIA: LMAC TISSUE REMOVED OR ALTERED: As noted above COMPLICATIONS: None. ESTIMATED BLOOD LOSS: None. INTRAOPERATIVE FINDINGS: As noted above. PROCEDURE: Patient tolerated the procedure well. No immediate postprocedure complications are noted. Patient is discharged in good condition. Discharge date 12/05/2019. Discharge diet: Regular. Discharge activity: Regular. 2 to 3-week follow-up to discuss findings. Patient is instructed to call the office or proceed to the emergency room should there be any further problems or questions. Wait on the pathology.
[2019-12-05 11:07] VITALS: BP 117/75
[2019-12-05 15:07] LABS: C DIFFICILE GDH NEGATIVE (NEGATIVE)
== END 2019-12-05 11:20 | disposition home or self-care (01) ==
LOC: END 08:01
PROVIDERS: ATTEND Internal Medicine Gastroenterology
DX: K29.50 Unspecified chronic gastritis without bleeding (principal); K29.80 Duodenitis without bleeding; K63.3 Ulcer of intestine; K92.1 Melena; R10.84 Generalized abdominal pain; K12.1 Other forms of stomatitis; F17.290 Nicotine dependence, other tobacco product, uncomplicated; Z83.79 Family history of other diseases of the digestive system; F32.9 Major depressive disorder, single episode, unspecified; Z68.27 Body mass index [BMI] 27.0-27.9, adult; Z79.1 Long term (current) use of non-steroidal anti-inflammatories (NSAID); Z85.828 Personal history of other malignant neoplasm of skin; Z03.818 Encounter for observation for suspected exposure to other biological agents ruled out
CPT/HCPCS: 43239; 45380; 87324; 87449; 88305 ×2; J2704; 813

== ENCOUNTER → 2019-12-08 | Outpatient (CLI) | payer OTHER | LOC: OD 07:57 | PROVIDERS: ATTEND Internal Medicine Gastroenterology | DX: K63.3 Ulcer of intestine (principal) | CPT/HCPCS: 36415; 85652; 86140 ==

== ENCOUNTER → 2020-01-22 | Outpatient (CLI) | payer OTHER ==
--- NOTE | 2020-01-22 14:47 | RADIOLOGY REPORT (SQ) ---
EXAM DESCRIPTION: CT ABD/PELVIS WITH IV ORAL IMAGES COMPLETED DATE/TIME: 01/22/2020 2:28 pm REASON FOR STUDY: R10.84 GENERALIZED ABDOMINAL PAIN R10.84 GENERALIZED ABDOMINAL PAIN COMPARISON: 08/12/2016 TECHNIQUE: CT scan of the abdomen and pelvis performed using helical scanning technique with dynamic intravenous contrast injection. No oral contrast. Images reviewed with lung, soft tissue, and bone windows. Reconstructed coronal and sagittal MPR images reviewed. Delayed images for evaluation of the urinary system also acquired. All images stored on PACS. All CT scanners at this facility use dose modulation, iterative reconstruction, and/or weight based d osing when appropriate to reduce radiation dose to as low as reasonably achievable (ALARA). [facility]: Dose Right [facility]: CareDose [facility]: Dose Right [facility]: Teradose 4D [facility]: PrimeRevenue CONTRAST TYPE AND DOSE: contrast/concentration: Isovue 350.00 mmol/ml; Total Contrast Delivered: 100 .0 ml; Total Saline Delivered: 65.0 ml RENAL FUNCTION: None required. The patient is less than 50 years old. RADIATION DOSE: CT Rad equipment meets quality standard of care and radiation dose reduction techniq ues were employed. CTDIvol: 5.3 - 5.4 mGy. DLP: 526 mGy-cm.. LIMITATIONS: None. FINDINGS: LOWER CHEST: Focal atelectasis at the right lung base. LIVER: Normal size. No masses. No dilated ducts. The hepatic and portal veins are patent. SPLEEN: Normal size. No focal lesions. PANCREAS: No masses. No significant calcifications. No adjacent inflammation or peripancreatic fluid collections. Pancreatic duct not dilated. GALLBLADDER: No identified stones by CT criteria. No inflammatory changes to suggest cholecystitis. ADRENAL GLANDS: No significant masses or asymmetry. RIGHT KIDNEY AND URETER: No solid masses. No significant calcifications. No hydronephrosis or hyd roureter. LEFT KIDNEY AND URETER: No solid masses. No significant calcifications. No hydronephrosis or hydr oureter. AORTA AND VESSELS: No aneurysm. No dissection. Renal arteries, SMA, celiac without stenosis. RETROPERITONEUM: No retroperitoneal adenopathy, hemorrhage or masses. BOWEL AND PERITONEAL CAVITY: The wall of the colon is mildly thickened, may be on the basis of incom plete distention with oral contrast versus inflammatory changes. No free fluid. APPENDIX: Normal. PELVIS: The uterus is mildly prominent in appearance. No free fluid. The urinary bladder is incomp letely distended. ABDOMINAL WALL: No masses. No hernias. BONES: The osseous structures are stable in appearance. No significant or acute findings. OTHER: No other significant finding. IMPRESSION: 1. The wall of the colon is mildly thickened, may be on the basis of incomplete distent ion with oral contrast versus inflammatory changes. Correlation suggested. 2. Uterus is mildly prominent in appearance. TECHNICAL DOCUMENTATION: JOB ID: [id number] Quality ID # [id number]: Final reports with documentation of one or more dose reduction techniques (e.g., Au tomated exposure control, adjustment of the mA and/or kV according to patient size, use of iterative reconstruction technique) 2010 [facility]- All Rights Reserved Reading location - IP/workstation name: [email or web address]
== END ==
LOC: RAD 11:28
PROVIDERS: ATTEND Nurse Practitioner Family
DX: R10.84 Generalized abdominal pain (principal)
CPT/HCPCS: 74177

== ENCOUNTER 2020-02-06 07:59 | Day surgery (SDC) | payer OTHER ==
[2020-02-06] MEDS ORDERED: PROPOFOL INJ 200 MG/20 ML VIAL IV ONE (09:30)
--- NOTE | 2020-02-06 09:47 | Operative Report ---
Operative Report DATE OF SURGERY: 02/06/20 Operative Report: The risk, benefits and alternatives of the procedure including the risk of bleeding, perforation requiring surgery have been explained to the patient in detail and informed consent has been obtained. Patient is placed in the left, lateral decubital position. Timeout was called. Propofol medication is administered. Rectal examination is done which did not reveal any masses, tears or fissures. An Olympus videoscope was introduced into the patient's rectum and subsequently insufflated the scope was then carefully guided all the way to the cecum. Cecum was identified by the usual anatomical landmarks including the ileocecal valve as well as the appendiceal office. Scope was then sequentially pulled back via the various segments of the colon including the ascending colon, hepatic flexure, transverse colon, splenic flexure, descending colon finding to the rectosigmoid portions of the colon. Retroflexion maneuver is performed. PREOPERATIVE DIAGNOSIS: Follow-up of previous colonic ulcers, lab work and pathology were negative for Crohn's in the past. There is a suspicion for NSAID induced colonic ulcers POSTOPERATIVE DIAGNOSIS: Previous ulcers noted IN the healing phase more granulation tissue is noted. OPERATION: Colonoscopy with biopsy SURGEON: MICHELLE GONGORA ANESTHESIA: LMAC TISSUE REMOVED OR ALTERED: As noted above. COMPLICATIONS: None. ESTIMATED BLOOD LOSS: None. INTRAOPERATIVE FINDINGS: As noted above. PROCEDURE: Patient tolerated the procedure well. No immediate postprocedure complications are noted. Patient is discharged in good condition. Discharge date 02/06/2020. Discharge diet: Regular. Discharge activity: Regular. 2 to 3-week follow-up to discuss findings. Patient is instructed call the office or proceed to the emergency room should there be any further problems or questions. Wait on the pathology.
[2020-02-06 10:22] VITALS: BP 111/73
== END 2020-02-06 10:20 | disposition home or self-care (01) ==
LOC: END 07:59
PROVIDERS: ATTEND Internal Medicine Gastroenterology
DX: K63.3 Ulcer of intestine (principal); K62.89 Other specified diseases of anus and rectum; R25.2 Cramp and spasm; F32.9 Major depressive disorder, single episode, unspecified; Z79.1 Long term (current) use of non-steroidal anti-inflammatories (NSAID); Z85.828 Personal history of other malignant neoplasm of skin; Z79.899 Other long term (current) drug therapy; Z87.891 Personal history of nicotine dependence
CPT/HCPCS: 45380; 88305 ×2; J2704; 812